=== PATIENT | male | born 1980 | race African-American/Black ===

== ENCOUNTER 2018-01-23 23:40 | Emergency (ER) | payer SELFPAY ==
--- NOTE | 2018-01-23 23:42 | NUR ---
patient called to be triage no response.
--- NOTE | 2018-01-23 23:42 | NUR ---
PATIENT LEFT WITHOUT BEING SEEN BY DR. MENSAH. NO FURTHER CARE PROVIDED FOR PATIENT.
--- NOTE | 2018-01-23 23:47 | NUR ---
PATIENT CALLED THE SECOND TIME , NO RESPONSE
--- NOTE | 2018-01-23 23:52 | NUR ---
PATIENT CALLED THE THIRD TIME NO RESPONSE.
== END 2018-01-23 23:42 | disposition left against medical advice (07) ==
LOC: MED 23:40
DX: Z53.21 Procedure and treatment not carried out due to patient leaving prior to being seen by health care provider (principal)

== ENCOUNTER 2018-01-24 00:53 | Emergency (ER) | payer MEDICAID ==
[~2018-01-24] VITALS: Ht 180.3 cm; Wt 95.3 kg
--- NOTE | 2018-01-24 01:00 | NUR ---
PT TAKEN TO BED 1
[2018-01-24 01:13] VITALS: BP 111/75
--- NOTE | 2018-01-24 01:14 | NUR ---
37/M CAME IN ED, C/O 10/26 "L SIDE PAIN" X1 DAY. L LATERAL SIDE NO ABNORMALITIES NOTED, TENDER TO TOUCH. PT DENIES CP, SOB, N/V. PT AOX4, AMBULATORY, RR EVEN AND UNLABORED. LUNG SOUNDS CLEAR BL. BS ACTIVE X4, ABD SOFT ROUND NONTENDER. MILD SWELLING NOTED ON FACE AND BL HANDS. DENIES MED HX
[2018-01-24] MEDS ORDERED: ACETAMINOPHEN EXTRA STRENGTH 500 MG TAB PO ONE (01:35)
--- NOTE | 2018-01-24 01:50 | NUR ---
PT UNABLE TO COLLECT URINE AT THIS TIME, WILL ATTEMPT LATER
[2018-01-24] MEDS ORDERED: NALOXONE 0.4 MG/ML VIAL IM ONE (03:10)
--- NOTE | 2018-01-24 03:20 | NUR ---
PT ABLE TO COLLECT PROVIDE URINE SAMPLE. URINE SENT TO LAB. VSS. ALL NEEDS MET AT THIS TIME.
[2018-01-24] MEDS ORDERED: NALOXONE PFS 2 MG/2 ML SYR ONE (03:30)
[2018-01-24] MEDS ORDERED: NALOXONE PFS 2 MG/2 ML SYR IM ONE (03:35)
[2018-01-24 03:41] LABS: BARBITURATE, URINE NEG. ng/ml (NEG <=200); BENZODIAZEPINE, URINE NEG. ng/mL (NEG <=200); CANNABINOID, URINE POS. ng/mL (NEG <=50); COCAINE, URINE NEG. ng/mL (NEG <=300); OPIATE, URINE NEG. ng/mL (NEG <=2000); PHENCYCLIDINE SCREEN,URINE NEG. ng/mL (NEG <=25)
[2018-01-24 04:50] VITALS: BP 110/74
--- NOTE | 2018-01-24 04:50 | NUR ---
Patient discharged with v/s stable. Written and verbal after care instructions given and explained. Patient verbalized understanding. Ambulatory with steady gait. All questions addressed prior to discharge. Advised to follow up with PMD.
== END 2018-01-24 04:50 | disposition home or self-care (01) ==
LOC: MED 00:53
DX: R10.9 Unspecified abdominal pain (principal); Z88.6 Allergy status to analgesic agent
CPT/HCPCS: 36415; 80305; 82948; 96372; 99284; C1758; G0482; J2310

== ENCOUNTER 2018-01-30 08:29 | Emergency (ER) | payer MEDICAID ==
[~2018-01-30] VITALS: Ht 180.3 cm; Wt 90.7 kg
--- NOTE | 2018-01-30 08:29 | NUR ---
PT BIBA BLS TO BED 3
--- NOTE | 2018-01-30 08:30 | NUR ---
37Y/M BIB EMS WITH C/O BL EYE PAIN 12/27 WAS HIT BY SOME OBJECTS POSSIBLE "PELLET"S PER PT WITH BLURRY VISSION. PT IS NOT ABLE TO OPEN JUAN EYES AT THSI TIME, NO REDNESS OR SWELLING AT THIS TIME. BED DOWN, BEDRRAIL UP X 1, ER MD AWARE AND NOTIFIED OF PT STATUS. HX; ANXIETY, DEPRESSION, PSYCH HX RX; RUN OUT OF XANAX
[2018-01-30 08:34] VITALS: BP 143/104
[2018-01-30] MEDS ORDERED: FLUORESCEIN OPTH STRIP 0.6 MG OP ONE (08:40)
--- NOTE | 2018-01-30 09:01 | NUR ---
Patient being evaluated by physician at bedside.
[2018-01-30] MEDS ORDERED: TETRACAINE HCL/PF 0.5% OPTH 4 ML BTL OP ONE (09:05)
[2018-01-30 09:53] VITALS: BP 138/98
--- NOTE | 2018-01-30 09:53 | NUR ---
Patient discharged with v/s stable. Written and verbal after care instructions given and explained. Patient alert, oriented and verbalized understanding of instructions. Ambulatory with steady gait. All questions addressed prior to discharge. ID band removed. Patient advised to follow up with PMD. Rx of norco and librium given. Patient educated on indication of medication including possible reaction and side effects. Opportunity to ask questions provided and answered.
== END 2018-01-30 09:53 | disposition home or self-care (01) ==
LOC: MED 08:29
DX: H57.13 Ocular pain, bilateral (principal); F10.230 Alcohol dependence with withdrawal, uncomplicated; F32.9 Major depressive disorder, single episode, unspecified; F41.9 Anxiety disorder, unspecified; F17.200 Nicotine dependence, unspecified, uncomplicated; Z90.89 Acquired absence of other organs; Z88.6 Allergy status to analgesic agent
CPT/HCPCS: 99283

== ENCOUNTER 2018-02-07 01:30 | Emergency (ER) | payer MEDICAID ==
[~2018-02-07] VITALS: Ht 180.3 cm; Wt 90.7 kg
[2018-02-07 01:46] VITALS: BP 143/114
[2018-02-07 02:08] VITALS: BP 118/72
== END 2018-02-07 02:08 | disposition home or self-care (01) ==
LOC: MED 01:30
DX: L03.314 Cellulitis of groin (principal); F17.200 Nicotine dependence, unspecified, uncomplicated; Z88.6 Allergy status to analgesic agent; Z90.49 Acquired absence of other specified parts of digestive tract
CPT/HCPCS: 99283

== ENCOUNTER 2018-02-13 05:28 | Emergency (ER) | payer MEDICAID ==
[~2018-02-13] VITALS: Ht 180.3 cm; Wt 90.7 kg
[2018-02-13 05:28] VITALS: BP 115/67
[2018-02-13] MEDS ORDERED: LORazepam 2 MG/ML VIAL IM ONE (05:40)
[2018-02-13 06:50] VITALS: BP 128/72
== END 2018-02-13 06:50 | disposition home or self-care (01) ==
LOC: MED 05:28
DX: F41.9 Anxiety disorder, unspecified (principal); K21.9 Gastro-esophageal reflux disease without esophagitis; Z90.89 Acquired absence of other organs; Z88.6 Allergy status to analgesic agent; F17.210 Nicotine dependence, cigarettes, uncomplicated
CPT/HCPCS: 96372; 99283; J2060

== ENCOUNTER 2018-02-13 21:48 | Emergency (ER) | payer MEDICAID ==
[~2018-02-13] VITALS: Ht 180.3 cm; Wt 90.7 kg
[2018-02-13 21:56] VITALS: BP 136/99
--- NOTE | 2018-02-13 21:56 | NUR ---
PT BIBA TO ER BED 07
--- NOTE | 2018-02-13 21:58 | NUR ---
PT BIBA TO BED 7
--- NOTE | 2018-02-13 22:17 | NUR ---
PT PRESENTS TO ED WITH C/O OF LOWER BACK PAIN S/P FALL FOLLOWING ETOH USE. NO TRAUMA OR OBVIOUS INJURY NOTED. STRONG SMELL OF ETOH NOTED. PT PLACED INTO BED, PENDING MD SIDDIQI. 11/26 PAIN. DENIES CP/SOB. HX--NONE
[2018-02-13] MEDS ORDERED: LORazepam 1 MG TAB PO ONE (22:25)
[2018-02-13 23:01] LABS: BASOPHILS % (AUTO) 0.4 % (0.0-2.0); EOSINOPHILS # (AUTO) 0.2 K/uL (0-0.4); EOSINOPHILS % (AUTO) 2.5 % (0.0-4.0); HEMATOCRIT 38.9 % (36-52); HEMOGLOBIN 13.1 g/dL (12.0-18.0); LYMPHOCYTES # (AUTO) 2.5 K/uL (2.0-11.5); LYMPHOCYTES % (AUTO) 39.5 % (20.5-51.1); MEAN CORPUSCULAR HEMOGLOBIN 33 pg (27-31); MEAN CORPUSCULAR HGB CONC 34 g/dL (33-37); MEAN CORPUSCULAR VOLUME 98.8 fL (80-94); MONOCYTES # (AUTO) 0.5 K/uL (0.8-1.0); MONOCYTES % (AUTO) 7.9 % (1.7-9.3); NEUTROPHILS # (AUTO) 3.1 K/uL (1.8-7.7); NEUTROPHILS % (AUTO) 49.7 % (42.2-75.2); PLATELET COUNT (AUTO) 322 K/uL (140-450); RED BLOOD CELL COUNT(AUTO) 3.94 MIL/uL (4.20-6.10); RED CELL DISTRIBUTION WIDTH 14.3 % (11.6-13.7); WHITE BLOOD COUNT (AUTO) 6.2 K/uL (4.8-10.8)
[2018-02-13 23:09] LABS: ANION GAP 13.6 (8-16); CREATININE 0.8 mg/dL (0.7-1.3); POTASSIUM 3.6 mmol/L (3.5-5.1)
[2018-02-13 23:15] LABS: ALBUMIN 3.4 g/dL (3.4-5.0); TOTAL BILIRUBIN 0.2 mg/dL (0.0-1.0)
--- NOTE | 2018-02-14 00:47 | NUR ---
PT REFUSING STRAIGHT CATH UNABLE TO URINAT IN URINAL
--- NOTE | 2018-02-14 01:02 | NUR ---
AWAITNG DISCHARGE INSTRUCTIONS FROM DR BENNETT AT THIS TIME.
[2018-02-14 02:04] VITALS: BP 136/99
== END 2018-02-14 02:04 | disposition home or self-care (01) ==
LOC: MED 21:48
DX: M54.9 Dorsalgia, unspecified (principal); Z88.6 Allergy status to analgesic agent
CPT/HCPCS: 72100; 80053; 85025; 99284